=== PATIENT | female | born 1965 | race African-American/Black ===

== ENCOUNTER 2018-11-17 12:10 | Emergency (ER) | payer OTHER ==
[~2018-11-17] VITALS: Ht 152.4 cm; Wt 100.0 kg
[~2018-11-17 12:10] MED LIST: ALBU8.5H8 IH; ASPI-556 PO; BECL8.7A7 PO; BENZ-51 PO; DOXY150T PO; FERR-82 PO; HYDR25TA PO; INSLAN SQ; INSNOV SQ; LINA290C PO; LISI-660 PO; METF-960 PO; MONT10TA21 PO; OMEP20 PO; PRED20 PO; SIMV-261 PO; TRAM50TA4 PO
[2018-11-17 12:24] LABS: GLUCOSE,POINT OF CARE 116 MG/DL (70-110)
[2018-11-17] MEDS ORDERED: ALBUTEROL SULFATE HFA 90 MCG/PUFF 8 GM INHALER IH ONE (13:15)
[2018-11-17] MEDS ORDERED: ACETAMINOPHEN 500 MG TABLET PO ONE (13:15)
[2018-11-17] MEDS ORDERED: NEOMYCIN/POLYMYXIN B/HYDROCORT 10 ML OTIC SOLUTION AS ONE (13:15)
[2018-11-17] MEDS ORDERED: NEOMYCIN/POLYMYXIN B/HYDROCORT 7.5 ML OPHTHALMIC SUSPENSION OS ONE (13:30)
[2018-11-17 13:33] VITALS: BP 122/64
== END 2018-11-17 14:09 | disposition home or self-care (01) ==
LOC: EMS 12:10
DX: H60.92 Unspecified otitis externa, left ear (principal); J44.9 Chronic obstructive pulmonary disease, unspecified; I10 Essential (primary) hypertension; E11.9 Type 2 diabetes mellitus without complications; F17.210 Nicotine dependence, cigarettes, uncomplicated; Z88.0 Allergy status to penicillin; Z88.1 Allergy status to other antibiotic agents; Z79.4 Long term (current) use of insulin; Z79.82 Long term (current) use of aspirin; Z79.899 Other long term (current) drug therapy
CPT/HCPCS: 94640; J3535

== ENCOUNTER 2020-02-15 16:07 | Inpatient (IN) | payer MEDICARE, OTHER ==
[~2020-02-15] VITALS: Ht 157.5 cm; Wt 96.8 kg
[~2020-02-15 16:07] MED LIST changes: -DOXY150T PO; +DOXY150T5 PO
[2020-02-15 16:59] LABS: ABG A-A DIFF O2 200.4 mmHg (10-20.0); ABG BASE EXCESS -11.3 mmol/L (-2.0-3.0); ABG CARBOXYHEMOGLOBIN 0.9 % (0.0-1.5); ABG HCO3 16.5 mmol/L (22.0-26.0); ABG METHEMOGLOBIN 0.2 % (0.0-1.5); ABG OXYGEN CONTENT 15.4 mL/dL (15.0-23.0); ABG OXYGEN SATURATION 93.5 % (95.0-98.0); ABG OXYHEMOGLOBIN 92.5 % (94.0-100.0); ABG PCO2 28 mmHg (35-45); ABG PH 7.339 (7.35-7.450); ABG TOTAL HEMOGLOBIN 11.8 G/dL (12.0-18.0); PO2, ARTERIAL BG 81.7 mmHg (84.0-92.0); SOURCE, BLOOD GAS ARTERIAL; TEMPERATURE, FAHRENHEIT, BG 99.2 FAHREN (96.0-98.6)
[2020-02-15 17:00] LABS: O2 DEVICE,BLOOD GAS CANNULA (ROOM AIR); SITE, BLOOD GAS RT RADIAL
[2020-02-15 17:19] LABS: HEMATOCRIT 36.2 % (36-46); HEMOGLOBIN 10.6 g/dL (12.0-16.0); MEAN CORPUSCULAR HEMOGLOBIN 23.7 pg (26.0-34.0); MEAN CORPUSCULAR HGB CONC 29.4 G/dL (31.0-37.0); MEAN CORPUSCULAR VOLUME 81 fL (80-100); PLATELET COUNT (AUTO) 138 K/uL (150-450); RED CELL DISTRIBUTION WIDTH 16.9 % (11.5-14.5)
[2020-02-15 17:39] LABS: ANION GAP 29 mmol/L (8-16); BAND NEUTROPHILS % (MANUAL) 6 % (0-5); CARBON DIOXIDE 16 mmol/L (22-29); CHLORIDE 86 mmol/L (98-107); CREATININE 2.33 mg/dL (0.60-1.30); GLOMERULAR FILTR. RATE CALC 26 mL/min (>60); LYMPHOCYTES % (MANUAL) 16 % (22-44); METAMYELOCYTES % 3 % (0-0); MONOCYTES % (MANUAL) 6 % (2-9); MYELOCYTES % 3 % (0-0); SEGMENTED NEUTROPHILS % 66 % (40-70); SODIUM SERUM 131 mmol/L (136-145); UREA NITROGEN, BLOOD 50 mg/dL (7-18)
[2020-02-15] MEDS ORDERED: BECL10.62 IH (17:41)
[2020-02-15] MEDS ORDERED: SODIUM CHLORIDE 0.9% 2,200 ML IV ONE (17:45)
[2020-02-15 17:54] LABS: ALANINE AMINOTRANSFERASE 15 U/L (12-78); ALBUMIN 2.9 g/dL (3.4-5.0); ALKALINE PHOSPHATASE 111 U/L (46-116); ASPARTATE AMINOTRANSFERASE 34 U/L (15-37); BILIRUBIN,TOTAL 1.3 mg/dL (0.1-1.0); CREATINE KINASE, TOTAL ONLY 222 U/L (26-192); TOTAL PROTEIN, SERUM 8.2 g/dL (6.4-8.2)
[2020-02-15 17:59] LABS: GLUCOSE,RANDOM 945 mg/dL (70-110)
[2020-02-15] MEDS ORDERED: POTASSIUM CHL 20 MEQ/0.45% NS 1,000 ML IV PRN (18:04)
[2020-02-15] MEDS ORDERED: SODIUM CHLORIDE 0.9% 1,000 ML IV SCH ×2 (18:04→18:55)
[2020-02-15] MEDS ORDERED: DEXTROSE 5%-0.45% SODIUM CHL 1,000 ML IV PRN ×2 (18:04→18:55)
[2020-02-15] MEDS ORDERED: POTASSIUM CHLORIDE 40 MEQ in SODIUM CHLORIDE 0.45% 1,000 ML IV PRN ×2 (18:04→18:55)
[2020-02-15] MEDS ORDERED: SODIUM CHLORIDE 0.45% 1,000 ML IV PRN ×2 (18:04→18:55)
[2020-02-15] MEDS ORDERED: INSULIN REGULAR, HUMAN 100 UNITS/ML IVP ONE (18:15)
[2020-02-15] MEDS ORDERED: INSULIN REGULAR, HUMAN 100 UNITS/ML IVP PRN ×2 (18:15→18:45)
[2020-02-15] MEDS ORDERED: DEXTROSE 50%-WATER 25 GM/50 ML SYRINGE IVP PRN ×2 (18:15→19:00)
[2020-02-15 18:16] LABS: C-REACTIVE PROTEIN QUANT 34.49 mg/dL (0.00-0.30)
[2020-02-15 18:19] LABS: APPEARANCE,URINE CLEAR (CLEAR); GLUCOSE, URINE (UA) >=1000 mg/dL (NEGATIVE); KETONES,URINE 40 mg/dL (NEGATIVE); LEUKOCYTE ESTERASE ,URINE NEGATIVE (NEGATIVE); NITRATE,URINE NEGATIVE (NEGATIVE); OCCULT BLOOD,URINE NEGATIVE (NEGATIVE); PROTEIN,URINE POS 1+ (NEGATIVE); UROBILINOGEN,URINE 0.2 mg/dL (<=1.0)
[2020-02-15 18:21] LABS: ERYTHROCYTE SEDIMENTATION RATE 75 MM/HR (0-20)
[2020-02-15 18:22] LABS: BILIRUBIN,URINE PRELIM. POSITIVE (NEGATIVE)
[2020-02-15 18:24] LABS: AMORPHOUS SEDIMENT,UR Few /LPF (None Seen); BACTERIA,URINE None Seen /HPF (None Seen); RBC,URINE None Seen /HPF (0-2); SQUAMOUS EPITHELIAL CELL,UR Rare /LPF (None Seen); WBC,URINE None Seen /HPF (0-5)
[2020-02-15] MEDS ORDERED: SODIUM CHLORIDE 0.9% 250 ML IV ONE (18:30)
[2020-02-15] MEDS ORDERED: CefTRIAXone 1 GM/DEXTROSE 50 ML IV ONE (18:30)
[2020-02-15] MEDS ORDERED: AZITHROMYCIN 500 MG/NS 250 ML IV ONE (18:30)
[2020-02-15] MEDS ORDERED: INSULIN REGULAR, HUMAN 100 UNITS in SODIUM CHLORIDE 0.9% 99 ML IV PRN ×6 (18:55→21:23)
[2020-02-15] MEDS ORDERED: BISACODYL 10 MG RECTAL RECTAL SUPPOSITORY PR PRN (19:00)
[2020-02-15] MEDS ORDERED: 0.9% SODIUM CHLORIDE 10 ML SYRINGE IVP PRN (19:00)
[2020-02-15] MEDS ORDERED: ONDANSETRON HCL 4 MG/2 ML VIAL IVP PRN (19:00)
[2020-02-15] MEDS ORDERED: SODIUM CHLORIDE 0.9% 2,650 ML IV ONE (19:00)
[2020-02-15] MEDS ORDERED: POTASSIUM CHL 10 MEQ/WATER 50 ML IV PRN (19:15)
[2020-02-15] MEDS ORDERED: POTASSIUM CHLORIDE 20 MEQ ER TABLET PO PRN (19:15)
[2020-02-15] MEDS ORDERED: MAGNESIUM OXIDE 400 MG TABLET PO PRN (19:15)
[2020-02-15 19:26] LABS: HEMOGLOBIN A1C 11.8 % (3.8-5.6)
[2020-02-15] MEDS ORDERED: HEPARIN SODIUM,PORCINE 5,000 UNITS/ML VIAL IVP PRN ×2 (19:30)
[2020-02-15 20:00] LABS: INR 1.3 (0.9-1.1); PROTHROMBIN TIME 13.3 SEC (9.4-11.6)
[2020-02-15] MEDS ORDERED: LEVOFLOXACIN 750 MG/D5% WATER 150 ML IV SCH (20:00)
[2020-02-15] MEDS: OXYGEN THERAPY IH SCH (20:00)
[2020-02-15] MEDS: INSULIN REGULAR, HUMAN 100 UNITS in SODIUM CHLORIDE 0.9% 99 ML IV PRN ×2 (21:30)
[2020-02-15 21:44] LABS: HEMATOCRIT 38.5 % (36-46); HEMOGLOBIN 11.1 g/dL (12.0-16.0); MEAN CORPUSCULAR HEMOGLOBIN 23.2 pg (26.0-34.0); MEAN CORPUSCULAR HGB CONC 28.9 G/dL (31.0-37.0); MEAN CORPUSCULAR VOLUME 80 fL (80-100); PLATELET COUNT (AUTO) 124 K/uL (150-450); RED BLOOD CELL COUNT(AUTO) 4.81 MIL/uL (4.00-5.20); RED CELL DISTRIBUTION WIDTH 17.2 % (11.5-14.5)
[2020-02-15 22:07] LABS: CALCIUM, TOTAL 8.8 mg/dL (8.8-10.5); CREATININE 2.2 mg/dL (0.60-1.30); POTASSIUM 4.9 mmol/L (3.5-5.1)
[2020-02-15 22:15] LABS: BAND NEUTROPHILS % (MANUAL) 5 % (0-5); LYMPHOCYTES % (MANUAL) 8 % (22-44); METAMYELOCYTES % 1 % (0-0); MONOCYTES % (MANUAL) 2 % (2-9); MYELOCYTES % 2 % (0-0); SEGMENTED NEUTROPHILS % 82 % (40-70)
[2020-02-15] MEDS: FAMOTIDINE 10 MG/ML 2 ML VIAL IVP SCH (22:22)
[2020-02-15] MEDS: POTASSIUM CHL 20 MEQ/0.45% NS 1,000 ML IV PRN (23:09)
[2020-02-15 23:44] LABS: GLUCOSE,POINT OF CARE > 600 MG/DL (70-110)
[2020-02-15 23:44] LABS: GLUCOSE,POINT OF CARE 558 MG/DL (70-110)
[2020-02-15 23:51] LABS: ABG A-A DIFF O2 603.6 mmHg (10-20.0); ABG BASE EXCESS -8.7 mmol/L (-2.0-3.0); ABG CARBOXYHEMOGLOBIN 0.2 % (0.0-1.5); ABG HCO3 18.1 mmol/L (22.0-26.0); ABG METHEMOGLOBIN 0.3 % (0.0-1.5); ABG OXYGEN SATURATION 93.3 % (95.0-98.0); ABG OXYHEMOGLOBIN 92.8 % (94.0-100.0); ABG PCO2 31 mmHg (35-45); ABG PH 7.352 (7.35-7.450); ABG TOTAL HEMOGLOBIN 10.7 G/dL (12.0-18.0); PO2, ARTERIAL BG 78.3 mmHg (84.0-92.0); SITE, BLOOD GAS RT RADIAL; SOURCE, BLOOD GAS ARTERIAL; TEMPERATURE, FAHRENHEIT, BG 98.6 FAHREN (96.0-98.6)
[2020-02-15 23:52] LABS: O2 DEVICE,BLOOD GAS NON REBREATHER (ROOM AIR)
[2020-02-15] MEDS: INSULIN REGULAR, HUMAN 100 UNITS/ML IVP PRN (23:57)
[2020-02-16] VITALS (8 sets, daily range): BP systolic 95–123; BP diastolic 43–72
[2020-02-16] MEDS ORDERED: HEPARIN SODIUM,PORCINE 5,000 UNITS/ML VIAL SQ SCH
[2020-02-16] MEDS: INSULIN REGULAR, HUMAN 100 UNITS in SODIUM CHLORIDE 0.9% 99 ML IV PRN ×10 (00:39→06:19)
[2020-02-16] MEDS: INSULIN REGULAR, HUMAN 100 UNITS/ML IVP PRN ×2 (00:40→01:38)
[2020-02-16] MEDS: POTASSIUM CHL 20 MEQ/0.45% NS 1,000 ML IV PRN (01:59)
[2020-02-16 02:49] LABS: GLUCOSE,POINT OF CARE 383 MG/DL (70-110)
[2020-02-16 02:49] LABS: GLUCOSE,POINT OF CARE 546 MG/DL (70-110)
[2020-02-16 02:49] LABS: GLUCOSE,POINT OF CARE 306 MG/DL (70-110)
[2020-02-16 02:51] LABS: CALCIUM, TOTAL 7.9 mg/dL (8.8-10.5); CREATININE 1.77 mg/dL (0.60-1.30); POTASSIUM 4.2 mmol/L (3.5-5.1)
[2020-02-16 04:47] LABS: GLUCOSE,POINT OF CARE 226 MG/DL (70-110)
[2020-02-16 04:47] LABS: GLUCOSE,POINT OF CARE 230 MG/DL (70-110)
[2020-02-16 04:47] LABS: GLUCOSE,POINT OF CARE 162 MG/DL (70-110)
[2020-02-16 05:39] LABS: HEMATOCRIT 31.8 % (36-46); HEMOGLOBIN 10.1 g/dL (12.0-16.0); MEAN CORPUSCULAR HGB CONC 31.9 G/dL (31.0-37.0); MEAN CORPUSCULAR VOLUME 75 fL (80-100); PLATELET COUNT (AUTO) 100 K/uL (150-450); RED BLOOD CELL COUNT(AUTO) 4.22 MIL/uL (4.00-5.20); RED CELL DISTRIBUTION WIDTH 16.1 % (11.5-14.5)
[2020-02-16 05:44] LABS: GLUCOSE,POINT OF CARE 137 MG/DL (70-110)
[2020-02-16 06:14] LABS: ABG A-A DIFF O2 588.5 mmHg (10-20.0); ABG BASE EXCESS 4.1 mmol/L (-2.0-3.0); ABG CARBOXYHEMOGLOBIN 0.3 % (0.0-1.5); ABG HCO3 27.6 mmol/L (22.0-26.0); ABG METHEMOGLOBIN 0.2 % (0.0-1.5); ABG OXYGEN CONTENT 14.1 mL/dL (15.0-23.0); ABG OXYGEN SATURATION 93.9 % (95.0-98.0); ABG OXYHEMOGLOBIN 93.4 % (94.0-100.0); ABG PCO2 47 mmHg (35-45); ABG PH 7.403 (7.35-7.450); ABG TOTAL HEMOGLOBIN 10.7 G/dL (12.0-18.0); PO2, ARTERIAL BG 77.1 mmHg (84.0-92.0); SOURCE, BLOOD GAS ARTERIAL; TEMPERATURE, FAHRENHEIT, BG 98.6 FAHREN (96.0-98.6)
[2020-02-16 06:15] LABS: O2 DEVICE,BLOOD GAS NON REBREATHER (ROOM AIR); SITE, BLOOD GAS RT RADIAL
[2020-02-16 06:31] LABS: ALBUMIN 2.6 g/dL (3.4-5.0); BILIRUBIN,TOTAL 1.1 mg/dL (0.1-1.0); CALCIUM, TOTAL 8.3 mg/dL (8.8-10.5); CREATININE 1.46 mg/dL (0.60-1.30); MAGNESIUM 1.3 mg/dL (1.80-2.40); POTASSIUM 4.4 mmol/L (3.5-5.1); TOTAL PROTEIN, SERUM 7.5 g/dL (6.4-8.2)
[2020-02-16 06:33] LABS: PHOSPHORUS 1.3 mg/dL (2.5-4.9)
[2020-02-16 07:46] LABS: GLUCOSE,POINT OF CARE 131 MG/DL (70-110)
[2020-02-16 07:59] LABS: BAND NEUTROPHILS % (MANUAL) 8 % (0-5); LYMPHOCYTES % (MANUAL) 13 % (22-44); MONOCYTES % (MANUAL) 5 % (2-9); SEGMENTED NEUTROPHILS % 74 % (40-70)
[2020-02-16] MEDS: MAGNESIUM SULFATE 2 GM/WATER 50 ML IV PRN (09:03)
[2020-02-16] MEDS: FAMOTIDINE 10 MG/ML 2 ML VIAL IVP SCH ×2 (09:04→21:14)
[2020-02-16] MEDS: OXYGEN THERAPY IH SCH ×2 (09:04→20:12)
[2020-02-16 09:13] LABS: GLUCOSE,POINT OF CARE 112 MG/DL (70-110)
[2020-02-16 09:31] LABS: CREATININE 1.21 mg/dL (0.60-1.30); POTASSIUM 3.8 mmol/L (3.5-5.1)
[2020-02-16] MEDS: HEPARIN SODIUM 25000 UNITS/D5W 250 ML IV PRN (09:46)
[2020-02-16] MEDS ORDERED: SODIUM CHLORIDE 0.9% 1,000 ML IV ONE (13:15)
[2020-02-16] MEDS: INSULIN GLARGINE,HUM.REC.ANLOG 100 UNITS/ML SQ SCH ×2 (13:32→21:16)
[2020-02-16] MEDS: BENZONATATE 100 MG CAPSULE PO SCH ×2 (15:59→23:05)
[2020-02-16] MEDS ORDERED: DEXTROSE 50%-WATER 25 GM/50 ML SYRINGE IVP PRN (18:45)
[2020-02-16] MEDS: ACETAMINOPHEN 325 MG TABLET PO PRN (20:52)
[2020-02-16] MEDS ORDERED: SODIUM CHLORIDE 0.9% 250 ML IV ONE (21:12)
[2020-02-16] MEDS: INSULIN LISPRO 100 UNITS/ML SQ PRN ×2 (21:17→23:31)
[2020-02-17] VITALS: BP 98/65
[2020-02-17] MEDS: ACETAMINOPHEN 325 MG TABLET PO PRN ×2 (01:19→06:02)
[2020-02-17] MEDS ORDERED: REMDESIVIR **INVESTIGATIONAL** 200 MG in SODIUM CHLORIDE 0.9% 210 ML IV ONE (03:00)
[2020-02-17 04:00] VITALS: BP 127/76
[2020-02-17 04:36] LABS: GLUCOSE,POINT OF CARE 257 MG/DL (70-110)
[2020-02-17 04:36] LABS: GLUCOSE,POINT OF CARE 251 MG/DL (70-110)
[2020-02-17 04:36] LABS: GLUCOSE,POINT OF CARE 299 MG/DL (70-110)
[2020-02-17] MEDS: INSULIN LISPRO 100 UNITS/ML SQ PRN ×4 (06:01→21:05)
[2020-02-17 06:13] LABS: FIBRINOGEN 289 mg/dL (200-400)
[2020-02-17 06:27] LABS: GLUCOMETER DEV NAME(LOC) 4E.2; GLUCOSE,POINT OF CARE 177 MG/DL (70-110)
[2020-02-17 06:27] LABS: GLUCOMETER DEV NAME(LOC) 4E.2; GLUCOSE,POINT OF CARE 56 MG/DL (70-110)
[2020-02-17 06:27] LABS: GLUCOMETER DEV NAME(LOC) 4E.2; GLUCOSE,POINT OF CARE 198 MG/DL (70-110)
[2020-02-17 06:27] LABS: GLUCOMETER DEV NAME(LOC) 4E.2; GLUCOSE,POINT OF CARE 194 MG/DL (70-110)
[2020-02-17 06:43] LABS: ALANINE AMINOTRANSFERASE 11 U/L (12-78); ALBUMIN 2.2 g/dL (3.4-5.0); ALKALINE PHOSPHATASE 92 U/L (46-116); ANION GAP 6 mmol/L (8-16); ASPARTATE AMINOTRANSFERASE 35 U/L (15-37); BILIRUBIN,TOTAL 0.6 mg/dL (0.1-1.0); CALCIUM, TOTAL 7.7 mg/dL (8.8-10.5); CARBON DIOXIDE 31 mmol/L (22-29); CHLORIDE 108 mmol/L (98-107); CREATININE 1.08 mg/dL (0.60-1.30); FERRITIN 268 ng/mL (8-252); GLOMERULAR FILTR. RATE CALC > 60 mL/min (>60); GLUCOSE,RANDOM 210 mg/dL (70-110); LACTATE DEHYDROGENASE 746 U/L (81-234); POTASSIUM 4.6 mmol/L (3.5-5.1); SODIUM SERUM 145 mmol/L (136-145); TOTAL PROTEIN, SERUM 6.2 g/dL (6.4-8.2); TRIGLYCERIDES 232 mg/dL (15-150); UREA NITROGEN, BLOOD 19 mg/dL (7-18)
[2020-02-17 08:00] VITALS: BP 131/76
[2020-02-17] MEDS: OXYGEN THERAPY IH SCH ×2 (09:38→21:02)
[2020-02-17] MEDS: BENZONATATE 100 MG CAPSULE PO SCH ×3 (09:38→23:38)
[2020-02-17] MEDS: FAMOTIDINE 10 MG/ML 2 ML VIAL IVP SCH ×2 (09:38→21:02)
[2020-02-17] MEDS: INSULIN GLARGINE,HUM.REC.ANLOG 100 UNITS/ML SQ SCH ×2 (09:42→21:05)
[2020-02-17] MEDS: ACETAMINOPHEN 650 MG/20.3 ML SOLUTION UDCUP PO PRN (09:56)
[2020-02-17] MEDS: MAGNESIUM SULFATE 4 GM/WATER 100 ML IV PRN (11:20)
[2020-02-17] MEDS: DEXAMETHASONE SOD PHOS 4 MG/ML VIAL IVP SCH (11:21)
[2020-02-17 12:00] VITALS: BP 117/68
[2020-02-17 16:00] VITALS: BP 122/68
[2020-02-17] MEDS ORDERED: SODIUM CHLORIDE 0.9% 250 ML IV ONE ×2 (16:25→21:00)
[2020-02-17] MEDS: HEPARIN SODIUM 25000 UNITS/D5W 250 ML IV PRN (17:32)
[2020-02-17] MEDS: LEVOFLOXACIN 750 MG/D5% WATER 150 ML IV SCH (17:33)
[2020-02-17 20:00] VITALS: BP 135/79
[2020-02-18] VITALS: BP 139/82
[2020-02-18 01:10] LABS: GLUCOMETER DEV NAME(LOC) 4E.2; GLUCOSE,POINT OF CARE 264 MG/DL (70-110)
[2020-02-18 02:51] LABS: EOSINOPHILS % (AUTO) 0 % (1.0-6.0); HEMATOCRIT 29.5 % (36-46); HEMOGLOBIN 9.2 g/dL (12.0-16.0); LYMPHOCYTES # (AUTO) 0.9 K/uL (1.0-4.8); LYMPHOCYTES % (AUTO) 6.7 % (22.0-44.0); MEAN CORPUSCULAR HEMOGLOBIN 23.7 pg (26.0-34.0); MEAN CORPUSCULAR HGB CONC 31.2 G/dL (31.0-37.0); MEAN CORPUSCULAR VOLUME 76 fL (80-100); MONOCYTES # (AUTO) 0.4 K/uL (0.1-1.0); MONOCYTES % (AUTO) 2.7 % (2.0-9.0); NEUTROPHILS # (AUTO) 11.7 K/uL (1.8-7.7); PLATELET COUNT (AUTO) 119 K/uL (150-450); RED CELL DISTRIBUTION WIDTH 16.4 % (11.5-14.5)
[2020-02-18 02:52] LABS: NEUTROPHILS % (AUTO) 89.6 % (40.0-70.0)
[2020-02-18] MEDS: REMDESIVIR **INVESTIGATIONAL** 100 MG in SODIUM CHLORIDE 0.9% 230 ML IV SCH (03:07)
[2020-02-18] MEDS: INSULIN LISPRO 100 UNITS/ML SQ PRN ×2 (03:09→12:58)
[2020-02-18 03:15] LABS: D-DIMER 15.27 mg/L FEU (0.00-0.50)
[2020-02-18 03:19] LABS: GLUCOMETER DEV NAME(LOC) 4E.2; GLUCOSE,POINT OF CARE 242 MG/DL (70-110)
[2020-02-18 03:20] LABS: ALANINE AMINOTRANSFERASE 12 U/L (12-78); ALBUMIN 2.2 g/dL (3.4-5.0); ALKALINE PHOSPHATASE 92 U/L (46-116); ANION GAP 11 mmol/L (8-16); ASPARTATE AMINOTRANSFERASE 26 U/L (15-37); BILIRUBIN,TOTAL 0.4 mg/dL (0.1-1.0); CALCIUM, TOTAL 8.4 mg/dL (8.8-10.5); CARBON DIOXIDE 31 mmol/L (22-29); CHLORIDE 105 mmol/L (98-107); CREATININE 1.02 mg/dL (0.60-1.30); FERRITIN 319 ng/mL (8-252); GLOMERULAR FILTR. RATE CALC > 60 mL/min (>60); GLUCOSE,RANDOM 247 mg/dL (70-110); PHOSPHORUS 2.6 mg/dL (2.5-4.9); SODIUM SERUM 147 mmol/L (136-145); TOTAL PROTEIN, SERUM 6.4 g/dL (6.4-8.2); UREA NITROGEN, BLOOD 19 mg/dL (7-18)
[2020-02-18 03:36] LABS: C-REACTIVE PROTEIN QUANT 26.38 mg/dL (0.00-0.30)
[2020-02-18 04:00] VITALS: BP 149/98
[2020-02-18 06:52] LABS: GLUCOSE,POINT OF CARE 234 MG/DL (70-110)
[2020-02-18 06:52] LABS: GLUCOSE,POINT OF CARE 239 MG/DL (70-110)
[2020-02-18 08:00] VITALS: BP 129/84
[2020-02-18 08:44] LABS: GLUCOMETER DEV NAME(LOC) 4E.2; GLUCOSE,POINT OF CARE 186 MG/DL (70-110)
[2020-02-18] MEDS: OXYGEN THERAPY IH SCH (09:17)
[2020-02-18] MEDS: BENZONATATE 100 MG CAPSULE PO SCH ×2 (09:17→16:49)
[2020-02-18] MEDS: DEXAMETHASONE SOD PHOS 4 MG/ML VIAL IVP SCH (09:17)
[2020-02-18] MEDS: INSULIN GLARGINE,HUM.REC.ANLOG 100 UNITS/ML SQ SCH ×2 (09:18→21:25)
[2020-02-18] MEDS: FAMOTIDINE 10 MG/ML 2 ML VIAL IVP SCH ×2 (09:18→21:26)
[2020-02-18 12:00] VITALS: BP 146/66
[2020-02-18 12:39] LABS: GLUCOSE,POINT OF CARE 193 MG/DL (70-110)
[2020-02-18 16:00] VITALS: BP 120/68
[2020-02-18] MEDS: LEVOFLOXACIN 750 MG/D5% WATER 150 ML IV SCH (16:49)
[2020-02-18 19:34] LABS: GLUCOSE,POINT OF CARE 184 MG/DL (70-110)
[2020-02-18 20:00] VITALS: BP 130/90
[2020-02-19] VITALS (11 sets, daily range): BP systolic 111–155; BP diastolic 52–83
[2020-02-19] MEDS: BENZONATATE 100 MG CAPSULE PO SCH ×4 (01:10→23:51)
[2020-02-19] MEDS ORDERED: SODIUM CHLORIDE 0.9% 250 ML IV ONE ×2 (03:43→19:07)
[2020-02-19] MEDS: REMDESIVIR **INVESTIGATIONAL** 100 MG in SODIUM CHLORIDE 0.9% 230 ML IV SCH (03:45)
[2020-02-19 05:26] LABS: BASOPHILS % (AUTO) 0.9 % (0.0-2.0); EOSINOPHILS % (AUTO) 0 % (1.0-6.0); HEMATOCRIT 28.4 % (36-46); HEMOGLOBIN 8.8 g/dL (12.0-16.0); LYMPHOCYTES # (AUTO) 0.8 K/uL (1.0-4.8); LYMPHOCYTES % (AUTO) 7.8 % (22.0-44.0); MEAN CORPUSCULAR HEMOGLOBIN 23.7 pg (26.0-34.0); MEAN CORPUSCULAR HGB CONC 31.1 G/dL (31.0-37.0); MEAN CORPUSCULAR VOLUME 76 fL (80-100); MONOCYTES # (AUTO) 0.5 K/uL (0.1-1.0); MONOCYTES % (AUTO) 5.1 % (2.0-9.0); NEUTROPHILS # (AUTO) 8.9 K/uL (1.8-7.7); PLATELET COUNT (AUTO) 167 K/uL (150-450); RED BLOOD CELL COUNT(AUTO) 3.73 MIL/uL (4.00-5.20); RED CELL DISTRIBUTION WIDTH 16.8 % (11.5-14.5)
[2020-02-19] MEDS: INSULIN LISPRO 100 UNITS/ML SQ PRN ×3 (05:30→17:22)
[2020-02-19 06:02] LABS: ALANINE AMINOTRANSFERASE 11 U/L (12-78); ALKALINE PHOSPHATASE 86 U/L (46-116); ANION GAP 6 mmol/L (8-16); ASPARTATE AMINOTRANSFERASE 21 U/L (15-37); BILIRUBIN,TOTAL 0.4 mg/dL (0.1-1.0); C-REACTIVE PROTEIN QUANT 14.84 mg/dL (0.00-0.30); CALCIUM, TOTAL 8.6 mg/dL (8.8-10.5); CARBON DIOXIDE 32 mmol/L (22-29); CHLORIDE 109 mmol/L (98-107); CREATININE 0.99 mg/dL (0.60-1.30); FERRITIN 273 ng/mL (8-252); GLOMERULAR FILTR. RATE CALC > 60 mL/min (>60); GLUCOSE,RANDOM 261 mg/dL (70-110); POTASSIUM 5.1 mmol/L (3.5-5.1); SODIUM SERUM 147 mmol/L (136-145); TOTAL PROTEIN, SERUM 6.2 g/dL (6.4-8.2); UREA NITROGEN, BLOOD 22 mg/dL (7-18)
[2020-02-19 06:03] LABS: NEUTROPHILS % (AUTO) 86.2 % (40.0-70.0)
[2020-02-19 06:07] LABS: D-DIMER 11.32 mg/L FEU (0.00-0.50)
[2020-02-19 06:50] LABS: GLUCOMETER DEV NAME(LOC) 4E.2; GLUCOSE,POINT OF CARE 230 MG/DL (70-110)
[2020-02-19 07:02] LABS: GLUCOSE,POINT OF CARE 230 MG/DL (70-110)
[2020-02-19] MEDS: DEXAMETHASONE SOD PHOS 4 MG/ML VIAL IVP SCH (08:37)
[2020-02-19] MEDS: OXYGEN THERAPY IH SCH ×2 (08:37→20:39)
[2020-02-19] MEDS: FAMOTIDINE 10 MG/ML 2 ML VIAL IVP SCH ×2 (08:37→20:42)
[2020-02-19] MEDS: INSULIN GLARGINE,HUM.REC.ANLOG 100 UNITS/ML SQ SCH ×2 (08:39→21:30)
[2020-02-19] MEDS: MAGNESIUM SULFATE 2 GM/WATER 50 ML IV PRN (09:28)
[2020-02-19 09:37] LABS: GLUCOMETER DEV NAME(LOC) 4E.2; GLUCOSE,POINT OF CARE 206 MG/DL (70-110)
[2020-02-19] MEDS: HEPARIN SODIUM 25000 UNITS/D5W 250 ML IV PRN (15:28)
[2020-02-19] MEDS: LEVOFLOXACIN 750 MG/D5% WATER 150 ML IV SCH (16:47)
[2020-02-19 17:36] LABS: GLUCOSE,POINT OF CARE 207 MG/DL (70-110)
[2020-02-19 17:50] LABS: GLUCOMETER DEV NAME(LOC) 4E.2; GLUCOSE,POINT OF CARE 372 MG/DL (70-110)
[2020-02-20] VITALS (7 sets, daily range): BP systolic 118–160; BP diastolic 29–98
[2020-02-20] MEDS: REMDESIVIR **INVESTIGATIONAL** 100 MG in SODIUM CHLORIDE 0.9% 230 ML IV SCH (03:06)
[2020-02-20 04:30] LABS: GLUCOSE,POINT OF CARE 163 MG/DL (70-110)
[2020-02-20 05:43] LABS: ALANINE AMINOTRANSFERASE 18 U/L (12-78); ALBUMIN 2.2 g/dL (3.4-5.0); ALKALINE PHOSPHATASE 95 U/L (46-116); ANION GAP 2 mmol/L (8-16); ASPARTATE AMINOTRANSFERASE 30 U/L (15-37); BILIRUBIN,TOTAL 0.4 mg/dL (0.1-1.0); C-REACTIVE PROTEIN QUANT 7.62 mg/dL (0.00-0.30); CARBON DIOXIDE 34 mmol/L (22-29); CHLORIDE 109 mmol/L (98-107); D-DIMER 9.67 mg/L FEU (0.00-0.50); FERRITIN 213 ng/mL (8-252); GLOMERULAR FILTR. RATE CALC > 60 mL/min (>60); GLUCOSE,RANDOM 73 mg/dL (70-110); POTASSIUM 4.2 mmol/L (3.5-5.1); SODIUM SERUM 145 mmol/L (136-145); TOTAL PROTEIN, SERUM 6.2 g/dL (6.4-8.2); UREA NITROGEN, BLOOD 18 mg/dL (7-18)
[2020-02-20 05:49] LABS: CALCIUM, TOTAL 8.6 mg/dL (8.8-10.5)
[2020-02-20] MEDS: OXYGEN THERAPY IH SCH ×2 (07:56→21:07)
[2020-02-20] MEDS: FAMOTIDINE 10 MG/ML 2 ML VIAL IVP SCH ×2 (07:57→20:58)
[2020-02-20] MEDS: BENZONATATE 100 MG CAPSULE PO SCH ×2 (07:57→15:37)
[2020-02-20] MEDS: DEXAMETHASONE SOD PHOS 4 MG/ML VIAL IVP SCH (07:57)
[2020-02-20 08:20] LABS: GLUCOMETER DEV NAME(LOC) 4E.2; GLUCOSE,POINT OF CARE 121 MG/DL (70-110)
[2020-02-20 08:21] LABS: GLUCOMETER DEV NAME(LOC) 4E.2; GLUCOSE,POINT OF CARE 78 MG/DL (70-110)
[2020-02-20 08:26] LABS: GLUCOSE,POINT OF CARE 67 MG/DL (70-110)
[2020-02-20] MEDS: INSULIN GLARGINE,HUM.REC.ANLOG 100 UNITS/ML SQ SCH ×3 (08:28→21:01)
[2020-02-20] MEDS: ENOXAPARIN SODIUM 100 MG/ML PF SYRINGE SQ SCH ×2 (10:15→20:59)
[2020-02-20 12:00] LABS: GLUCOSE,POINT OF CARE 102 MG/DL (70-110)
[2020-02-20] MEDS: MAGNESIUM SULFATE 2 GM/WATER 50 ML IV PRN (16:17)
[2020-02-20] MEDS: LEVOFLOXACIN 750 MG/D5% WATER 150 ML IV SCH (17:27)
[2020-02-20] MEDS: INSULIN LISPRO 100 UNITS/ML SQ PRN ×2 (17:27→21:03)
[2020-02-20 17:53] LABS: GLUCOMETER DEV NAME(LOC) 5S.1; GLUCOSE,POINT OF CARE 195 MG/DL (70-110)
[2020-02-21] VITALS (7 sets, daily range): BP systolic 91–145; BP diastolic 8–82
[2020-02-21] MEDS: REMDESIVIR **INVESTIGATIONAL** 100 MG in SODIUM CHLORIDE 0.9% 230 ML IV SCH (03:04)
[2020-02-21] MEDS ORDERED: SODIUM CHLORIDE 0.9% 250 ML IV ONE (05:50)
[2020-02-21 07:29] LABS: ALANINE AMINOTRANSFERASE 17 U/L (12-78); ALBUMIN 2.3 g/dL (3.4-5.0); ALKALINE PHOSPHATASE 118 U/L (46-116); ANION GAP 4 mmol/L (8-16); ASPARTATE AMINOTRANSFERASE 30 U/L (15-37); BILIRUBIN,TOTAL 0.5 mg/dL (0.1-1.0); CALCIUM, TOTAL 8.6 mg/dL (8.8-10.5); CARBON DIOXIDE 34 mmol/L (22-29); CHLORIDE 103 mmol/L (98-107); CREATININE 0.81 mg/dL (0.60-1.30); FERRITIN 176 ng/mL (8-252); GLOMERULAR FILTR. RATE CALC > 60 mL/min (>60); GLUCOSE,RANDOM 179 mg/dL (70-110); POTASSIUM 3.4 mmol/L (3.5-5.1); SODIUM SERUM 141 mmol/L (136-145); TOTAL PROTEIN, SERUM 6.5 g/dL (6.4-8.2); UREA NITROGEN, BLOOD 16 mg/dL (7-18)
[2020-02-21 08:27] LABS: D-DIMER 10.14 mg/L FEU (0.00-0.50)
[2020-02-21 08:41] LABS: GLUCOMETER DEV NAME(LOC) 5N.3; GLUCOSE,POINT OF CARE 273 MG/DL (70-110)
[2020-02-21] MEDS: FAMOTIDINE 10 MG/ML 2 ML VIAL IVP SCH ×2 (09:09→20:34)
[2020-02-21] MEDS: DEXAMETHASONE 2 MG TABLET PO SCH (09:09)
[2020-02-21] MEDS: BENZONATATE 100 MG CAPSULE PO SCH ×3 (09:09→17:03)
[2020-02-21] MEDS: ENOXAPARIN SODIUM 100 MG/ML PF SYRINGE SQ SCH ×2 (09:09→20:34)
[2020-02-21] MEDS: OXYGEN THERAPY IH SCH ×2 (09:11→20:39)
[2020-02-21] MEDS: INSULIN GLARGINE,HUM.REC.ANLOG 100 UNITS/ML SQ SCH (09:25)
[2020-02-21] MEDS: INSULIN LISPRO 100 UNITS/ML SQ PRN ×3 (12:15→20:35)
[2020-02-21 12:48] LABS: GLUCOMETER DEV NAME(LOC) 5N.1; GLUCOSE,POINT OF CARE 55 MG/DL (70-110)
[2020-02-21 12:48] LABS: GLUCOMETER DEV NAME(LOC) 5N.1; GLUCOSE,POINT OF CARE 163 MG/DL (70-110)
[2020-02-21 12:48] LABS: GLUCOMETER DEV NAME(LOC) 5N.1; GLUCOSE,POINT OF CARE 177 MG/DL (70-110)
[2020-02-21] MEDS: LEVOFLOXACIN 750 MG/D5% WATER 150 ML IV SCH (17:58)
[2020-02-22] MEDS: BENZONATATE 100 MG CAPSULE PO SCH ×3 (00:18→17:37)
[2020-02-22 04:00] VITALS: BP 139/85
[2020-02-22 07:31] LABS: GLUCOMETER DEV NAME(LOC) 5N.1; GLUCOSE,POINT OF CARE 380 MG/DL (70-110)
[2020-02-22 07:31] LABS: GLUCOMETER DEV NAME(LOC) 5N.1; GLUCOSE,POINT OF CARE 120 MG/DL (70-110)
[2020-02-22 07:35] VITALS: BP 122/85
[2020-02-22] MEDS ORDERED: INSULIN GLARGINE,HUM.REC.ANLOG 100 UNITS/ML SQ SCH (09:00)
[2020-02-22] MEDS: FAMOTIDINE 10 MG/ML 2 ML VIAL IVP SCH ×2 (09:06→20:39)
[2020-02-22] MEDS: ENOXAPARIN SODIUM 100 MG/ML PF SYRINGE SQ SCH ×2 (09:06→20:39)
[2020-02-22] MEDS: OXYGEN THERAPY IH SCH ×2 (09:07→20:40)
[2020-02-22] MEDS: DEXAMETHASONE 2 MG TABLET PO SCH (09:07)
[2020-02-22 09:22] LABS: BASOPHILS % (AUTO) 0.4 % (0.0-2.0); EOSINOPHILS % (AUTO) 1.2 % (1.0-6.0); HEMATOCRIT 30.4 % (36-46); HEMOGLOBIN 9.4 g/dL (12.0-16.0); LYMPHOCYTES # (AUTO) 1.5 K/uL (1.0-4.8); LYMPHOCYTES % (AUTO) 14.4 % (22.0-44.0); MEAN CORPUSCULAR HEMOGLOBIN 23.5 pg (26.0-34.0); MEAN CORPUSCULAR VOLUME 76 fL (80-100); MONOCYTES # (AUTO) 0.7 K/uL (0.1-1.0); MONOCYTES % (AUTO) 6.5 % (2.0-9.0); NEUTROPHILS # (AUTO) 7.8 K/uL (1.8-7.7); NEUTROPHILS % (AUTO) 77.5 % (40.0-70.0); PLATELET COUNT (AUTO) 267 K/uL (150-450); RED BLOOD CELL COUNT(AUTO) 4.01 MIL/uL (4.00-5.20); RED CELL DISTRIBUTION WIDTH 16.9 % (11.5-14.5)
[2020-02-22 09:41] LABS: ANION GAP 3 mmol/L (8-16); CALCIUM, TOTAL 8.6 mg/dL (8.8-10.5); CARBON DIOXIDE 34 mmol/L (22-29); CHLORIDE 106 mmol/L (98-107); CREATININE 0.84 mg/dL (0.60-1.30); GLOMERULAR FILTR. RATE CALC > 60 mL/min (>60); GLUCOSE,RANDOM 174 mg/dL (70-110); POTASSIUM 4.4 mmol/L (3.5-5.1); SODIUM SERUM 143 mmol/L (136-145); UREA NITROGEN, BLOOD 17 mg/dL (7-18)
[2020-02-22 11:07] LABS: LEGIONELLA PNEUMO AG URINE Negative (Negative); ORGANISM ID Not indicated.; S PNEUMO SOURCE Urine; STREP PNEUMONIAE AG URINE Negative (Negative); STREP.PNEUMO BODY FLUID CULT. Not indicated.
[2020-02-22] MEDS: INSULIN LISPRO 100 UNITS/ML SQ PRN ×3 (11:43→22:16)
[2020-02-22 11:45] VITALS: BP 118/83
[2020-02-22 12:59] LABS: GLUCOMETER DEV NAME(LOC) 5S.2A; GLUCOSE,POINT OF CARE 202 MG/DL (70-110)
[2020-02-22 12:59] LABS: GLUCOMETER DEV NAME(LOC) 5S.2A; GLUCOSE,POINT OF CARE 263 MG/DL (70-110)
[2020-02-22 16:45] VITALS: BP 121/87
[2020-02-22 17:18] LABS: GLUCOMETER DEV NAME(LOC) 5N.1; GLUCOSE,POINT OF CARE 119 MG/DL (70-110)
[2020-02-22] MEDS: LEVOFLOXACIN 750 MG/D5% WATER 150 ML IV SCH (17:37)
[2020-02-22 18:06] LABS: GLUCOMETER DEV NAME(LOC) 5N.3; GLUCOSE,POINT OF CARE 444 MG/DL (70-110)
[2020-02-22] MEDS: MAGNESIUM SULFATE 4 GM/WATER 100 ML IV PRN (19:06)
[2020-02-22 20:43] VITALS: BP 94/59
[2020-02-22 21:31] LABS: GLUCOMETER DEV NAME(LOC) 5N.1; GLUCOSE,POINT OF CARE 550 MG/DL (70-110)
[2020-02-23 00:43] VITALS: BP 98/72
[2020-02-23] MEDS ORDERED: INSULIN LISPRO 100 UNITS/ML SQ ONE (00:45)
[2020-02-23 06:16] VITALS: BP 120/59
[2020-02-23 07:13] LABS: GLUCOMETER DEV NAME(LOC) 5S.1; GLUCOSE,POINT OF CARE 499 MG/DL (70-110)
[2020-02-23 07:13] LABS: ALANINE AMINOTRANSFERASE 18 U/L (12-78); ALBUMIN 2.3 g/dL (3.4-5.0); ALKALINE PHOSPHATASE 122 U/L (46-116); ANION GAP 3 mmol/L (8-16); ASPARTATE AMINOTRANSFERASE 22 U/L (15-37); BILIRUBIN,TOTAL 0.4 mg/dL (0.1-1.0); CALCIUM, TOTAL 8.9 mg/dL (8.8-10.5); CARBON DIOXIDE 33 mmol/L (22-29); CHLORIDE 99 mmol/L (98-107); CREATININE 0.92 mg/dL (0.60-1.30); GLOMERULAR FILTR. RATE CALC > 60 mL/min (>60); GLUCOSE,RANDOM 331 mg/dL (70-110); SODIUM SERUM 135 mmol/L (136-145); TOTAL PROTEIN, SERUM 6.4 g/dL (6.4-8.2); UREA NITROGEN, BLOOD 21 mg/dL (7-18)
[2020-02-23 07:13] LABS: GLUCOMETER DEV NAME(LOC) 5S.1; GLUCOSE,POINT OF CARE 416 MG/DL (70-110)
[2020-02-23 08:42] VITALS: BP 110/87
[2020-02-23] MEDS ORDERED: INSULIN GLARGINE,HUM.REC.ANLOG 100 UNITS/ML SQ SCH (09:00)
[2020-02-23] MEDS: DEXAMETHASONE 2 MG TABLET PO SCH (09:40)
[2020-02-23] MEDS: BENZONATATE 100 MG CAPSULE PO SCH ×3 (09:40→16:53)
[2020-02-23] MEDS: FAMOTIDINE 10 MG/ML 2 ML VIAL IVP SCH ×2 (09:41→20:39)
[2020-02-23] MEDS: ENOXAPARIN SODIUM 100 MG/ML PF SYRINGE SQ SCH ×2 (09:42→20:39)
[2020-02-23] MEDS: OXYGEN THERAPY IH SCH ×2 (09:43→20:39)
[2020-02-23] MEDS: INSULIN LISPRO 100 UNITS/ML SQ PRN ×3 (12:05→20:49)
[2020-02-23 15:24] VITALS: BP 102/66
[2020-02-23] MEDS: ACETAMINOPHEN 650 MG/20.3 ML SOLUTION UDCUP PO PRN (20:39)
[2020-02-23] MEDS: INSULIN GLARGINE,HUM.REC.ANLOG 100 UNITS/ML SQ SCH (20:48)
[2020-02-23 20:59] VITALS: BP 118/62
[2020-02-24 00:37] VITALS: BP 129/77
[2020-02-24 02:56] LABS: GLUCOMETER DEV NAME(LOC) 5N.1; GLUCOSE,POINT OF CARE 377 MG/DL (70-110)
[2020-02-24 02:56] LABS: GLUCOMETER DEV NAME(LOC) 5S.1; GLUCOSE,POINT OF CARE 375 MG/DL (70-110)
[2020-02-24 02:57] LABS: GLUCOMETER DEV NAME(LOC) 5S.1; GLUCOSE,POINT OF CARE 442 MG/DL (70-110)
[2020-02-24 07:01] LABS: BASOPHILS % (AUTO) 0.9 % (0.0-2.0); EOSINOPHILS % (AUTO) 0.6 % (1.0-6.0); HEMATOCRIT 29.5 % (36-46); HEMOGLOBIN 9.3 g/dL (12.0-16.0); LYMPHOCYTES # (AUTO) 1.5 K/uL (1.0-4.8); LYMPHOCYTES % (AUTO) 15.5 % (22.0-44.0); MEAN CORPUSCULAR HEMOGLOBIN 23.9 pg (26.0-34.0); MEAN CORPUSCULAR HGB CONC 31.4 G/dL (31.0-37.0); MEAN CORPUSCULAR VOLUME 76 fL (80-100); MONOCYTES # (AUTO) 0.7 K/uL (0.1-1.0); MONOCYTES % (AUTO) 7.6 % (2.0-9.0); NEUTROPHILS # (AUTO) 7.4 K/uL (1.8-7.7); NEUTROPHILS % (AUTO) 75.4 % (40.0-70.0); PLATELET COUNT (AUTO) 199 K/uL (150-450); RED BLOOD CELL COUNT(AUTO) 3.88 MIL/uL (4.00-5.20); RED CELL DISTRIBUTION WIDTH 17.5 % (11.5-14.5)
[2020-02-24] MEDS: INSULIN LISPRO 100 UNITS/ML SQ PRN ×4 (07:19→20:55)
[2020-02-24 07:42] LABS: ANION GAP 4 mmol/L (8-16); C-REACTIVE PROTEIN QUANT 3.03 mg/dL (0.00-0.30); CALCIUM, TOTAL 9.2 mg/dL (8.8-10.5); CARBON DIOXIDE 32 mmol/L (22-29); CHLORIDE 100 mmol/L (98-107); CREATININE 0.81 mg/dL (0.60-1.30); FERRITIN 157 ng/mL (8-252); GLOMERULAR FILTR. RATE CALC > 60 mL/min (>60); GLUCOSE,RANDOM 177 mg/dL (70-110); LACTATE DEHYDROGENASE 455 U/L (81-234); POTASSIUM 4.4 mmol/L (3.5-5.1); SODIUM SERUM 136 mmol/L (136-145); UREA NITROGEN, BLOOD 20 mg/dL (7-18)
[2020-02-24 07:59] LABS: GLUCOMETER DEV NAME(LOC) 5N.1; GLUCOSE,POINT OF CARE 194 MG/DL (70-110)
[2020-02-24] MEDS: ENOXAPARIN SODIUM 100 MG/ML PF SYRINGE SQ SCH ×2 (08:49→20:37)
[2020-02-24] MEDS: FAMOTIDINE 10 MG/ML 2 ML VIAL IVP SCH ×2 (08:50→20:38)
[2020-02-24] MEDS: BENZONATATE 100 MG CAPSULE PO SCH ×4 (08:51→16:30)
[2020-02-24] MEDS: DEXAMETHASONE 2 MG TABLET PO SCH (08:51)
[2020-02-24] MEDS: OXYGEN THERAPY IH SCH ×2 (08:51→22:49)
[2020-02-24 11:00] VITALS: BP 112/62
[2020-02-24 15:48] VITALS: BP 107/61
[2020-02-24 16:02] LABS: PHOSPHORUS 3.5 mg/dL (2.5-4.9)
[2020-02-24] MEDS: MAGNESIUM SULFATE 2 GM/WATER 50 ML IV PRN (18:21)
[2020-02-24] MEDS ORDERED: INSULIN LISPRO 100 UNITS/ML SQ ONE (18:30)
[2020-02-24 20:03] VITALS: BP 109/74
[2020-02-24] MEDS: ACETAMINOPHEN 650 MG/20.3 ML SOLUTION UDCUP PO PRN (20:38)
[2020-02-24] MEDS: INSULIN GLARGINE,HUM.REC.ANLOG 100 UNITS/ML SQ SCH (20:54)
[2020-02-24 23:55] VITALS: BP 117/68
[2020-02-25 06:40] LABS: BASOPHILS % (AUTO) 0.7 % (0.0-2.0); EOSINOPHILS % (AUTO) 0.7 % (1.0-6.0); HEMOGLOBIN 9.7 g/dL (12.0-16.0); LYMPHOCYTES # (AUTO) 2.2 K/uL (1.0-4.8); LYMPHOCYTES % (AUTO) 19.2 % (22.0-44.0); MEAN CORPUSCULAR HEMOGLOBIN 23.1 pg (26.0-34.0); MEAN CORPUSCULAR HGB CONC 30.2 G/dL (31.0-37.0); MEAN CORPUSCULAR VOLUME 77 fL (80-100); MONOCYTES # (AUTO) 0.9 K/uL (0.1-1.0); NEUTROPHILS # (AUTO) 8.1 K/uL (1.8-7.7); NEUTROPHILS % (AUTO) 71.4 % (40.0-70.0); PLATELET COUNT (AUTO) 253 K/uL (150-450); RED BLOOD CELL COUNT(AUTO) 4.18 MIL/uL (4.00-5.20); RED CELL DISTRIBUTION WIDTH 17.7 % (11.5-14.5)
[2020-02-25] MEDS: INSULIN LISPRO 100 UNITS/ML SQ PRN ×4 (06:46→21:42)
[2020-02-25 07:07] LABS: ALANINE AMINOTRANSFERASE 27 U/L (12-78); ALBUMIN 2.5 g/dL (3.4-5.0); ALKALINE PHOSPHATASE 116 U/L (46-116); ANION GAP 4 mmol/L (8-16); ASPARTATE AMINOTRANSFERASE 33 U/L (15-37); BILIRUBIN,TOTAL 0.3 mg/dL (0.1-1.0); C-REACTIVE PROTEIN QUANT 1.84 mg/dL (0.00-0.30); CALCIUM, TOTAL 9.3 mg/dL (8.8-10.5); CARBON DIOXIDE 34 mmol/L (22-29); CHLORIDE 101 mmol/L (98-107); CREATININE 1.02 mg/dL (0.60-1.30); FERRITIN 162 ng/mL (8-252); GLOMERULAR FILTR. RATE CALC > 60 mL/min (>60); GLUCOSE,RANDOM 142 mg/dL (70-110); LACTATE DEHYDROGENASE 421 U/L (81-234); POTASSIUM 4.3 mmol/L (3.5-5.1); SODIUM SERUM 139 mmol/L (136-145); TOTAL PROTEIN, SERUM 6.5 g/dL (6.4-8.2); UREA NITROGEN, BLOOD 21 mg/dL (7-18)
[2020-02-25 07:15] LABS: GLUCOMETER DEV NAME(LOC) 5N.1; GLUCOSE,POINT OF CARE 413 MG/DL (70-110)
[2020-02-25 07:15] LABS: GLUCOMETER DEV NAME(LOC) 5N.1; GLUCOSE,POINT OF CARE 226 MG/DL (70-110)
[2020-02-25 07:16] LABS: GLUCOMETER DEV NAME(LOC) 5N.1; GLUCOSE,POINT OF CARE 126 MG/DL (70-110)
[2020-02-25 07:16] LABS: GLUCOMETER DEV NAME(LOC) 5S.1; GLUCOSE,POINT OF CARE 458 MG/DL (70-110)
[2020-02-25 08:57] VITALS: BP 116/76
[2020-02-25] MEDS: BENZONATATE 100 MG CAPSULE PO SCH ×3 (09:31→16:25)
[2020-02-25] MEDS: DEXAMETHASONE 2 MG TABLET PO SCH (09:31)
[2020-02-25] MEDS: FAMOTIDINE 10 MG/ML 2 ML VIAL IVP SCH ×2 (09:31→21:39)
[2020-02-25] MEDS: ENOXAPARIN SODIUM 100 MG/ML PF SYRINGE SQ SCH ×2 (09:32→21:39)
[2020-02-25] MEDS: INSULIN GLARGINE,HUM.REC.ANLOG 100 UNITS/ML SQ SCH ×2 (09:34→21:41)
[2020-02-25 12:32] LABS: GLUCOMETER DEV NAME(LOC) 5N.1; GLUCOSE,POINT OF CARE 207 MG/DL (70-110)
[2020-02-25 13:22] VITALS: BP 103/69
[2020-02-25] MEDS ORDERED: SODIUM CHLORIDE 0.9% 250 ML IV ONE (17:02)
[2020-02-25 17:09] VITALS: BP 111/74
[2020-02-25 18:30] VITALS: BP 117/74
[2020-02-25 18:45] VITALS: BP 110/78
[2020-02-25] MEDS: OXYGEN THERAPY IH SCH ×2 (21:39→21:45)
[2020-02-25] MEDS ORDERED: INSULIN LISPRO 100 UNITS/ML SQ ONE (21:45)
[2020-02-25 23:51] VITALS: BP 98/67
[2020-02-26] MEDS: BENZONATATE 100 MG CAPSULE PO SCH ×3 (00:47→16:46)
[2020-02-26 04:22] VITALS: BP 113/51
[2020-02-26 07:18] LABS: ANION GAP 3 mmol/L (8-16); C-REACTIVE PROTEIN QUANT 1.25 mg/dL (0.00-0.30); CALCIUM, TOTAL 9.4 mg/dL (8.8-10.5); CARBON DIOXIDE 33 mmol/L (22-29); CHLORIDE 102 mmol/L (98-107); FERRITIN 145 ng/mL (8-252); GLOMERULAR FILTR. RATE CALC > 60 mL/min (>60); GLUCOSE,RANDOM 121 mg/dL (70-110); LACTATE DEHYDROGENASE 417 U/L (81-234); POTASSIUM 4.7 mmol/L (3.5-5.1); SODIUM SERUM 138 mmol/L (136-145); UREA NITROGEN, BLOOD 21 mg/dL (7-18)
[2020-02-26 07:46] VITALS: BP 126/71
[2020-02-26 08:08] LABS: GLUCOMETER DEV NAME(LOC) 5S.2A; GLUCOSE,POINT OF CARE 373 MG/DL (70-110)
[2020-02-26 08:08] LABS: GLUCOMETER DEV NAME(LOC) 5S.2A; GLUCOSE,POINT OF CARE 485 MG/DL (70-110)
[2020-02-26 08:09] LABS: GLUCOMETER DEV NAME(LOC) 5S.2A; GLUCOSE,POINT OF CARE 92 MG/DL (70-110)
[2020-02-26] MEDS: FAMOTIDINE 10 MG/ML 2 ML VIAL IVP SCH ×2 (09:15→20:49)
[2020-02-26] MEDS: DEXAMETHASONE 2 MG TABLET PO SCH (09:16)
[2020-02-26] MEDS: OXYGEN THERAPY IH SCH ×2 (09:16→21:12)
[2020-02-26] MEDS: ENOXAPARIN SODIUM 100 MG/ML PF SYRINGE SQ SCH ×2 (09:16→20:50)
[2020-02-26] MEDS: INSULIN GLARGINE,HUM.REC.ANLOG 100 UNITS/ML SQ SCH ×3 (09:31→21:14)
[2020-02-26 11:20] VITALS: BP 113/71
[2020-02-26] MEDS: INSULIN LISPRO 100 UNITS/ML SQ PRN ×2 (12:46→21:14)
[2020-02-26 14:54] VITALS: BP 102/58
[2020-02-26 16:59] LABS: GLUCOMETER DEV NAME(LOC) 5S.1; GLUCOSE,POINT OF CARE 464 MG/DL (70-110)
[2020-02-26] MEDS ORDERED: INSULIN LISPRO 100 UNITS/ML SQ ONE ×2 (17:00→21:45)
[2020-02-26 19:53] VITALS: BP 110/71
[2020-02-27 02:19] LABS: GLUCOMETER DEV NAME(LOC) 5N.1; GLUCOSE,POINT OF CARE 433 MG/DL (70-110)
[2020-02-27 04:30] VITALS: BP 105/74
[2020-02-27 07:11] LABS: GLUCOMETER DEV NAME(LOC) 5S.2A; GLUCOSE,POINT OF CARE 237 MG/DL (70-110)
[2020-02-27 07:55] VITALS: BP 119/77
[2020-02-27 08:40] LABS: ALANINE AMINOTRANSFERASE 36 U/L (12-78); ALBUMIN 2.7 g/dL (3.4-5.0); ALKALINE PHOSPHATASE 103 U/L (46-116); ANION GAP 6 mmol/L (8-16); ASPARTATE AMINOTRANSFERASE 24 U/L (15-37); BILIRUBIN,TOTAL 0.3 mg/dL (0.1-1.0); C-REACTIVE PROTEIN QUANT 0.94 mg/dL (0.00-0.30); CALCIUM, TOTAL 9.3 mg/dL (8.8-10.5); CARBON DIOXIDE 33 mmol/L (22-29); CHLORIDE 101 mmol/L (98-107); CREATININE 0.96 mg/dL (0.60-1.30); FERRITIN 194 ng/mL (8-252); GLOMERULAR FILTR. RATE CALC > 60 mL/min (>60); GLUCOSE,RANDOM 180 mg/dL (70-110); LACTATE DEHYDROGENASE 377 U/L (81-234); POTASSIUM 4.6 mmol/L (3.5-5.1); SODIUM SERUM 140 mmol/L (136-145); TOTAL PROTEIN, SERUM 6.8 g/dL (6.4-8.2); UREA NITROGEN, BLOOD 23 mg/dL (7-18)
[2020-02-27] MEDS: FAMOTIDINE 10 MG/ML 2 ML VIAL IVP SCH ×2 (09:06→21:41)
[2020-02-27] MEDS: ENOXAPARIN SODIUM 100 MG/ML PF SYRINGE SQ SCH ×2 (09:06→21:43)
[2020-02-27] MEDS: BENZONATATE 100 MG CAPSULE PO SCH ×3 (09:06→16:00)
[2020-02-27] MEDS: OXYGEN THERAPY IH SCH ×2 (09:07→22:04)
[2020-02-27] MEDS: INSULIN GLARGINE,HUM.REC.ANLOG 100 UNITS/ML SQ SCH ×2 (09:08→21:57)
[2020-02-27] MEDS: INSULIN LISPRO 100 UNITS/ML SQ PRN ×3 (12:00→21:58)
[2020-02-27 12:24] VITALS: BP 122/81
[2020-02-27 17:05] VITALS: BP 120/78
[2020-02-27 17:28] LABS: GLUCOMETER DEV NAME(LOC) 5S.1; GLUCOSE,POINT OF CARE 102 MG/DL (70-110)
[2020-02-27 19:24] VITALS: BP 118/73
[2020-02-28 05:34] VITALS: BP 137/88
[2020-02-28] MEDS: ENOXAPARIN SODIUM 100 MG/ML PF SYRINGE SQ SCH ×2 (07:57→20:35)
[2020-02-28] MEDS: BENZONATATE 100 MG CAPSULE PO SCH ×4 (07:57→23:25)
[2020-02-28] MEDS: FAMOTIDINE 10 MG/ML 2 ML VIAL IVP SCH ×2 (07:57→20:34)
[2020-02-28] MEDS: INSULIN GLARGINE,HUM.REC.ANLOG 100 UNITS/ML SQ SCH ×2 (07:58→20:39)
[2020-02-28] MEDS: OXYGEN THERAPY IH SCH ×2 (08:12→20:41)
[2020-02-28 08:20] VITALS: BP 105/52
[2020-02-28 11:06] VITALS: BP 105/75
[2020-02-28] MEDS: INSULIN LISPRO 100 UNITS/ML SQ PRN ×3 (11:44→20:40)
[2020-02-28 12:15] LABS: GLUCOMETER DEV NAME(LOC) 5S.1; GLUCOSE,POINT OF CARE 125 MG/DL (70-110)
[2020-02-28 12:15] LABS: GLUCOMETER DEV NAME(LOC) 5S.1; GLUCOSE,POINT OF CARE 311 MG/DL (70-110)
[2020-02-28 16:18] VITALS: BP 124/82
[2020-02-28 20:20] VITALS: BP 137/56
[2020-02-28 23:32] VITALS: BP 127/65
[2020-02-29 05:12] VITALS: BP 122/60
[2020-02-29 05:49] LABS: BASOPHILS % (AUTO) 1.4 % (0.0-2.0); EOSINOPHILS % (AUTO) 1.6 % (1.0-6.0); HEMATOCRIT 32.6 % (36-46); HEMOGLOBIN 10.1 g/dL (12.0-16.0); LYMPHOCYTES # (AUTO) 2.7 K/uL (1.0-4.8); LYMPHOCYTES % (AUTO) 25.4 % (22.0-44.0); MEAN CORPUSCULAR VOLUME 77 fL (80-100); MONOCYTES # (AUTO) 0.6 K/uL (0.1-1.0); MONOCYTES % (AUTO) 5.9 % (2.0-9.0); NEUTROPHILS # (AUTO) 6.9 K/uL (1.8-7.7); NEUTROPHILS % (AUTO) 65.7 % (40.0-70.0); PLATELET COUNT (AUTO) 264 K/uL (150-450); RED BLOOD CELL COUNT(AUTO) 4.22 MIL/uL (4.00-5.20); RED CELL DISTRIBUTION WIDTH 18.2 % (11.5-14.5)
[2020-02-29] MEDS: INSULIN LISPRO 100 UNITS/ML SQ PRN ×3 (05:54→11:59)
[2020-02-29 06:41] LABS: ALANINE AMINOTRANSFERASE 35 U/L (12-78); ALBUMIN 2.8 g/dL (3.4-5.0); ALKALINE PHOSPHATASE 97 U/L (46-116); ANION GAP 4 mmol/L (8-16); ASPARTATE AMINOTRANSFERASE 23 U/L (15-37); BILIRUBIN,TOTAL 0.3 mg/dL (0.1-1.0); C-REACTIVE PROTEIN QUANT 1.44 mg/dL (0.00-0.30); CALCIUM, TOTAL 9.3 mg/dL (8.8-10.5); CARBON DIOXIDE 34 mmol/L (22-29); CHLORIDE 102 mmol/L (98-107); CREATININE 1.02 mg/dL (0.60-1.30); FERRITIN 128 ng/mL (8-252); GLOMERULAR FILTR. RATE CALC > 60 mL/min (>60); GLUCOSE,RANDOM 157 mg/dL (70-110); POTASSIUM 4.2 mmol/L (3.5-5.1); SODIUM SERUM 140 mmol/L (136-145); UREA NITROGEN, BLOOD 17 mg/dL (7-18)
[2020-02-29 07:47] LABS: GLUCOMETER DEV NAME(LOC) 5N.1; GLUCOSE,POINT OF CARE 251 MG/DL (70-110)
[2020-02-29 07:47] LABS: GLUCOMETER DEV NAME(LOC) 5S.1; GLUCOSE,POINT OF CARE 153 MG/DL (70-110)
[2020-02-29 07:47] LABS: GLUCOMETER DEV NAME(LOC) 5N.1; GLUCOSE,POINT OF CARE 224 MG/DL (70-110)
[2020-02-29 07:47] LABS: GLUCOMETER DEV NAME(LOC) 5N.1; GLUCOSE,POINT OF CARE 310 MG/DL (70-110)
[2020-02-29 07:47] LABS: GLUCOMETER DEV NAME(LOC) 5N.1; GLUCOSE,POINT OF CARE 237 MG/DL (70-110)
[2020-02-29 07:47] LABS: GLUCOMETER DEV NAME(LOC) 5N.1; GLUCOSE,POINT OF CARE 268 MG/DL (70-110)
[2020-02-29 08:15] VITALS: BP 117/72
[2020-02-29] MEDS: BENZONATATE 100 MG CAPSULE PO SCH (08:44)
[2020-02-29] MEDS: ENOXAPARIN SODIUM 100 MG/ML PF SYRINGE SQ SCH (08:44)
[2020-02-29] MEDS: FAMOTIDINE 10 MG/ML 2 ML VIAL IVP SCH (08:45)
[2020-02-29] MEDS: INSULIN GLARGINE,HUM.REC.ANLOG 100 UNITS/ML SQ SCH (09:02)
[2020-02-29] MEDS ORDERED: APIX5TAB PO (09:50)
[2020-02-29 10:56] VITALS: BP 125/62
[2020-02-29 15:04] LABS: GLUCOMETER DEV NAME(LOC) 5S.1; GLUCOSE,POINT OF CARE 252 MG/DL (70-110)
== END 2020-02-29 13:30 | disposition home health service (06) | DRG 871 ==
LOC: EMS 16:10 → UNDOADMIN 18:55 → ICUN 18:55 → ICU 18:55 → 5N 02-20 16:50
PROVIDERS: ADMIT Internal Medicine; ATTEND Internal Medicine
PROC: 02HV33Z Insertion of Infusion Device into Superior Vena Cava, Percutaneous Approach (ICD-10-PCS; principal; 2020-02-15)
PROC: B548ZZA Ultrasonography of Superior Vena Cava, Guidance (ICD-10-PCS; 2020-02-15)
DX: A41.89 Other specified sepsis (principal); U07.1 COVID-19; J96.01 Acute respiratory failure with hypoxia; G92 Toxic encephalopathy; J12.89 Other viral pneumonia; E11.10 Type 2 diabetes mellitus with ketoacidosis without coma; N17.9 Acute kidney failure, unspecified; J44.0 Chronic obstructive pulmonary disease with (acute) lower respiratory infection; D68.59 Other primary thrombophilia; E87.2 Acidosis; R65.20 Severe sepsis without septic shock; D64.9 Anemia, unspecified; I10 Essential (primary) hypertension; E78.5 Hyperlipidemia, unspecified; E83.42 Hypomagnesemia; E86.0 Dehydration; E66.01 Morbid (severe) obesity due to excess calories; Z68.39 Body mass index [BMI] 39.0-39.9, adult; Z88.0 Allergy status to penicillin; Z88.1 Allergy status to other antibiotic agents; Z79.899 Other long term (current) drug therapy
CPT/HCPCS: 36556; 36600; 70450; 82728; 82805; 82948; 83036; 83520; 83605; 83615; 83735; 83930; 84100; 84145; 84478; 85379; 85384; 85651; 86140; 86850; 86900; 86901; 86927; 87040; 87081; 87449; 87899; 93005; 93306; 97110; 97116; 97162; 97530; 99291; 99292; G0378; J0456; J0696; J1100; J1644; J1650; J1815; J1956; J3475; J3480; J3490; J7030; J7050; J8540; 36415-L1; 36415-TC; 71045-TC; 84703-TC; U0003-CS